=== PATIENT | male | born 1955 | race Two or more races ===

== ENCOUNTER 2024-04-15 13:42 | Inpatient (IN) | payer MEDICARE, OTHER ==
[~2024-04-15] VITALS: Ht 180.3 cm; Wt 127.0 kg
[2024-04-15 14:19] LABS: BASOPHILS % (AUTO) 0.2 % (0.0-2.0); EOSINOPHILS # (AUTO) 0.2 K/uL (0.0-0.7); EOSINOPHILS % (AUTO) 1.3 % (0.0-7.0); HEMOGLOBIN 15.5 g/dL (12.5-16.3); LYMPHOCYTES # (AUTO) 1.2 K/uL (0.8-4.8); MEAN CORPUSCULAR HEMOGLOBIN 28.9 uug (23.8-33.4); MEAN CORPUSCULAR HGB CONC 34 g/dL (32.5-36.3); MEAN CORPUSCULAR VOLUME 85.9 fL (73.0-96.2); MONOCYTES # (AUTO) 0.5 K/uL (0.1-1.30); MONOCYTES % (AUTO) 3.8 % (0.0-11.0); NEUTROPHILS # (AUTO) 12.5 K/uL (1.8-8.9); NEUTROPHILS % (AUTO) 86.7 % (38.5-71.5); PLATELET COUNT (AUTO) 188 K/uL (152-348); RED BLOOD CELL COUNT(AUTO) 5.36 MIL/uL (4.06-5.63); RED CELL DISTRIBUTION WIDTH 14.2 % (12.1-16.2); WHITE BLOOD COUNT (AUTO) 14.5 K/uL (3.6-10.2)
[2024-04-15 14:20] LABS: DIFFERENTIAL COMMENT 1
[2024-04-15 14:41] LABS: POTASSIUM 3.8 mmol/L (3.5-5.1)
[2024-04-15 14:42] LABS: CALCIUM 9.3 mg/dL (8.5-10.1); CREATININE 1.6 mg/dL (0.6-1.3)
[2024-04-15] MEDS ORDERED: ONDANSETRON 4 MG/2 ML VIAL ONE (14:45)
[2024-04-15] MEDS: IV NS 1000 ML 1,000 ML IV ONE (14:45)
[2024-04-15] MEDS ORDERED: HYDROMORPHONE 1 MG/1 ML DISP.SYRIN ONE (14:46)
[2024-04-15] MEDS: ONDANSETRON 4 MG/2 ML VIAL IV ONE (14:46)
[2024-04-15] MEDS: HYDROMORPHONE 1 MG/1 ML DISP.SYRIN IV ONE (14:48)
[2024-04-15] MEDS ORDERED: METF-442 PO (15:22)
[2024-04-15] MEDS ORDERED: FLUO40CA8 PO (15:22)
[2024-04-15] MEDS ORDERED: ARIP10TA9 PO (15:22)
[2024-04-15] MEDS ORDERED: TAMS-3 PO (15:22)
[2024-04-15] MEDS ORDERED: ATOR40TA PO (15:22)
[2024-04-15] MEDS ORDERED: HYDROCHLOROTHIAZIDE (15:22)
[2024-04-15] MEDS ORDERED: BENA40TA8 PO (15:22)
[2024-04-15 16:15] VITALS: O2SAT 96
[2024-04-15] MEDS ORDERED: BACITRACIN ZINC OINT 15 GM TUBE ONE (16:59)
[2024-04-15] MEDS: BACITRACIN ZINC OINT 15 GM TUBE TOP ONE (17:10)
[2024-04-15] MEDS ORDERED: DEXTROSE 50% 50 ML DISP.SYRIN IV PRN (19:45)
[2024-04-15] MEDS ORDERED: ACETAMINOPHEN 650 MG SUPP.RECT RC PRN (19:45)
[2024-04-15] MEDS ORDERED: ONDANSETRON 4 MG/2 ML VIAL IV PRN (19:45)
[2024-04-15 20:12] VITALS: BP 107/63; TEMP 98.6; O2SAT 97
[2024-04-15 20:27] VITALS: O2SAT 97
[2024-04-15] MEDS: IV D5/ 0.9% NACL 1,000 ML IV PRN (20:28)
[2024-04-15 20:54] LABS: *BILIRUBIN,URIN 1+ (NEGATIVE); *BLOOD, URINE NEGATIVE (NEGATIVE); *CLARITY,URINE CLEAR (CLEAR); *COLOR,URINE DARK YELLOW (YELLOW); *KETONES,URINE TRACE (NEGATIVE); *PROTEIN,URINE 1+ (NEGATIVE); *UROBILINOGEN,URINE 0.2 E.U./dl (NORMAL); NITRITE, URINE NEGATIVE (NEGATIVE); PH,URINE 5.5 (5.0-8.0); UGLUCOSE NEGATIVE (NEGATIVE)
[2024-04-15 20:55] LABS: LEUKOCYTE ESTERASE ,URINE 1+ (NEGATIVE)
[2024-04-15 20:58] LABS: BACTERIA,URINE FEW /HPF (NONE SEEN); RBC,URINE NONE SEEN /HPF (0-3)
[2024-04-15 20:59] LABS: SQUAMOUS EPITHELIAL CELL,UR MODERATE /HPF (NONE SEEN)
[2024-04-15] MEDS: HYDROMORPHONE 1 MG/1 ML DISP.SYRIN IV PRN (22:14)
[2024-04-15] MEDS: BLOOD SUGAR DIAGNOSTIC 1 EACH STRIP VI SCH (23:37)
[2024-04-15] MEDS: INSULIN REGULAR, HUMAN 300 UNIT/3 ML VIAL SQ PRN (23:37)
[2024-04-16] VITALS (9 sets, daily range): BP systolic 104–145; BP diastolic 65–91; TEMP 97.6–99.1; O2SAT 95–98
[2024-04-16 04:33] LABS: BASOPHILS % (AUTO) 0.2 % (0.0-2.0); EOSINOPHILS # (AUTO) 0.1 K/uL (0.0-0.7); EOSINOPHILS % (AUTO) 1.1 % (0.0-7.0); HEMATOCRIT 39.2 % (36.7-47.1); HEMOGLOBIN 13.3 g/dL (12.5-16.3); LYMPHOCYTES # (AUTO) 1.5 K/uL (0.8-4.8); MEAN CORPUSCULAR HGB CONC 34 g/dL (32.5-36.3); MEAN CORPUSCULAR VOLUME 85.7 fL (73.0-96.2); MONOCYTES # (AUTO) 0.5 K/uL (0.1-1.30); MONOCYTES % (AUTO) 5.9 % (0.0-11.0); NEUTROPHILS # (AUTO) 6.8 K/uL (1.8-8.9); NEUTROPHILS % (AUTO) 75.8 % (38.5-71.5); PLATELET COUNT (AUTO) 159 K/uL (152-348); RED BLOOD CELL COUNT(AUTO) 4.58 MIL/uL (4.06-5.63); WHITE BLOOD COUNT (AUTO) 8.9 K/uL (3.6-10.2)
[2024-04-16 04:49] LABS: DIFFERENTIAL COMMENT 1
[2024-04-16 05:11] LABS: ALANINE AMINOTRANSFERASE 39 U/L (16-63); ALBUMIN 3.2 g/dL (3.4-5.0); ALKALINE PHOSPHATASE 70 U/L (50-136); ASPARTATE AMINOTRANSFERASE 22 U/L (15-37); BILIRUBIN,TOTAL 0.8 mg/dL (0.2-1.0); CALCIUM 8.6 mg/dL (8.5-10.1); CARBON DIOXIDE 28 mmol/L (21-32); CHLORIDE 102 mmol/L (98-107); CREATININE 1.3 mg/dL (0.6-1.3); GLUCOSE 151 mg/dL (74-106); MAGNESIUM 1.4 mg/dL (1.8-2.4); PHOSPHOROUS 3.2 mg/dL (2.5-4.9); POTASSIUM 3.3 mmol/L (3.5-5.1); SODIUM SERUM 138 mmol/L (136-145); TOTAL PROTEIN, SERUM 6.3 g/dL (6.4-8.2); UREA NITROGEN, BLOOD 24 mg/dL (7-18)
[2024-04-16 05:16] LABS: IRON, SERUM 31 ug/dL (50-175)
[2024-04-16] MEDS: POTASSIUM CHLORIDE 50 ML IV SCH (06:40)
[2024-04-16] MEDS ORDERED: FENTANYL CITRATE 100 MCG/2 ML AMPUL ONE (08:07)
[2024-04-16] MEDS ORDERED: MIDAZOLAM HCL 2 MG/2 ML VIAL ONE (08:08)
[2024-04-16] MEDS ORDERED: VANCOMYCIN 1000 MG VIAL ONE (08:56)
[2024-04-16] MEDS ORDERED: ALBUTEROL SULFATE 2.5 MG/3 ML NEBU ONE (10:02)
[2024-04-16] MEDS ORDERED: hydrALAZINE HCL 20 MG/1 ML VIAL ONE (10:05)
[2024-04-16] MEDS ORDERED: POTASSIUM CHLORIDE 50 ML IV SCH (10:30)
[2024-04-16] MEDS ORDERED: HYDROCODONE/APAP 10-325 MG TABLET PO PRN (10:45)
[2024-04-16] MEDS ORDERED: HYDROMORPHONE 1 MG/1 ML DISP.SYRIN IV PRN (11:00)
[2024-04-16] MEDS: PANTOPRAZOLE SODIUM 40 MG VIAL IV SCH (11:21)
[2024-04-16] MEDS: MAGNESIUM SULFATE/D5W 100 ML IV SCH (11:21)
[2024-04-16] MEDS: POTASSIUM CHLORIDE 20 MEQ in IV D5 1/2 NS 1000 ML 1,000 ML IV PRN (11:22)
[2024-04-16 14:28] LABS: *BILIRUBIN,URIN NEGATIVE (NEGATIVE); *BLOOD, URINE NEGATIVE (NEGATIVE); *CLARITY,URINE CLEAR (CLEAR); *COLOR,URINE YELLOW (YELLOW); *KETONES,URINE TRACE (NEGATIVE); *PROTEIN,URINE TRACE (NEGATIVE); *UROBILINOGEN,URINE 0.2 E.U./dl (NORMAL); LEUKOCYTE ESTERASE ,URINE 1+ (NEGATIVE); NITRITE, URINE NEGATIVE (NEGATIVE); PH,URINE 5.5 (5.0-8.0); UGLUCOSE NEGATIVE (NEGATIVE)
[2024-04-16 14:36] LABS: BACTERIA,URINE FEW /HPF (NONE SEEN); RBC,URINE 0-3 /HPF (0-3); SQUAMOUS EPITHELIAL CELL,UR FEW /HPF (NONE SEEN); WBC,URINE 50-80 /HPF (0-3)
[2024-04-16 14:37] LABS: *CREATININE,URINE 141.5 mg/dL (30-125); *URINE TOTAL PROTEIN RANDOM 35.7 mg/dL (<150/24HR)
[2024-04-16] MEDS: BLOOD SUGAR DIAGNOSTIC 1 EACH STRIP VI SCH (15:56)
[2024-04-16] MEDS: CEFAZOLIN 1 G in IV DEXTROSE 5% 50 ML IV SCH (16:15)
[2024-04-16] MEDS ORDERED: FLUOXETINE HCL 20 MG CAPSULE PO SCH (16:30)
[2024-04-16] MEDS ORDERED: FLUO20CA42 PO (17:02)
[2024-04-16] MEDS: METFORMIN HCL 500 MG TABLET PO SCH (17:04)
[2024-04-16] MEDS: BENAZEPRIL HCL 20 MG TABLET PO SCH (17:04)
[2024-04-16] MEDS ORDERED: BUPR-96 PO (17:04)
[2024-04-16] MEDS ORDERED: CHLO50TA PO (17:04)
[2024-04-16] MEDS: ATORVASTATIN 40 MG TABLET PO SCH (20:26)
[2024-04-16] MEDS: TAMSULOSIN HCL 0.4 MG CAP.SR.24H PO SCH (20:26)
[2024-04-16] MEDS: MORPHINE SULFATE 4 MG/1 ML DISP.SYRIN IV PRN (20:30)
[2024-04-16] MEDS ORDERED: DEXTROSE 50% 50 ML DISP.SYRIN IV PRN (21:30)
[2024-04-17 04:35] VITALS: BP 108/68; TEMP 98.7; O2SAT 99
[2024-04-17] MEDS: BLOOD SUGAR DIAGNOSTIC 1 EACH STRIP VI SCH (06:33)
[2024-04-17 06:45] LABS: CALCIUM 8.4 mg/dL (8.5-10.1); CREATININE 1.3 mg/dL (0.6-1.3); MAGNESIUM 1.9 mg/dL (1.8-2.4); POTASSIUM 3.6 mmol/L (3.5-5.1)
[2024-04-17] MEDS: PANTOPRAZOLE SODIUM 40 MG TABLET.DR PO SCH (07:39)
[2024-04-17] MEDS: INSULIN REGULAR, HUMAN 300 UNIT/3 ML VIAL SQ PRN (07:39)
[2024-04-17] MEDS: buPROPion XL 150 MG TAB.SR.24H PO SCH (08:02)
[2024-04-17] MEDS: ARIPIPRAZOLE 10 MG TABLET PO SCH (08:02)
[2024-04-17] MEDS: FLUOXETINE HCL 20 MG CAPSULE PO SCH (08:02)
[2024-04-17] MEDS: CHLORTHALIDONE 25 MG TABLET PO SCH (08:03)
[2024-04-17] MEDS: ENOXAPARIN SODIUM 40 MG/0.4 ML DISP.SYRIN SQ SCH (08:16)
[2024-04-17] MEDS ORDERED: HYDROCHLOROTHIAZIDE 25 MG TABLET PO SCH (09:00)
[2024-04-17 12:00] VITALS: BP 100/70; TEMP 98.6; O2SAT 97
[2024-04-17 13:35] LABS: CREATINE KINASE, TOTAL 302 U/L (39-308)
[2024-04-17 16:00] VITALS: BP 146/77; TEMP 97.8; O2SAT 97
[2024-04-17 20:00] VITALS: BP 113/71; TEMP 98.8
[2024-04-18 03:21] VITALS: O2SAT 97
[2024-04-18 06:42] VITALS: BP 103/61; TEMP 99.5; O2SAT 96
[2024-04-18 12:00] VITALS: BP 108/71; TEMP 98.2; O2SAT 97
[2024-04-18 16:04] VITALS: BP 114/78; TEMP 97.6; O2SAT 97
[2024-04-18 20:35] VITALS: BP 100/73; TEMP 98; O2SAT 96
[2024-04-19] VITALS (7 sets, daily range): BP systolic 99–134; BP diastolic 72–76; TEMP 97.7–98; O2SAT 95–98
[2024-04-20 06:36] VITALS: BP 111/76; TEMP 98; O2SAT 93
[2024-04-20] MEDS ORDERED: GUAIFENESIN/CODEINE 5 ML LIQUID UDC PO PRN (10:15)
[2024-04-20] MEDS: GUAIFENESIN/DEXTROMETHORPHAN 5 ML UDC PO PRN (10:57)
[2024-04-20 11:43] VITALS: BP 104/75; TEMP 97.5; O2SAT 94
== END 2024-04-20 15:00 | DRG 492 ==
LOC: ER 13:43 → MEDSURG3 17:32
PROVIDERS: ADMIT Internal Medicine; ATTEND Nurse Practitioner Acute Care
PROC: 0QSH04Z Reposition Left Tibia with Internal Fixation Device, Open Approach (ICD-10-PCS; principal; 2024-04-16)
DX: S82.132A Displaced fracture of medial condyle of left tibia, initial encounter for closed fracture (principal); N17.0 Acute kidney failure with tubular necrosis; E44.1 Mild protein-calorie malnutrition; D68.59 Other primary thrombophilia; E66.01 Morbid (severe) obesity due to excess calories; Z68.39 Body mass index [BMI] 39.0-39.9, adult; E86.0 Dehydration; N40.0 Benign prostatic hyperplasia without lower urinary tract symptoms; W18.39XA Other fall on same level, initial encounter; Y93.A9 Activity, other involving cardiorespiratory exercise; Y92.830 Public park as the place of occurrence of the external cause; E87.6 Hypokalemia; E11.9 Type 2 diabetes mellitus without complications; E88.09 Other disorders of plasma-protein metabolism, not elsewhere classified; Z74.09 Other reduced mobility; Z79.84 Long term (current) use of oral hypoglycemic drugs; Z79.899 Other long term (current) drug therapy
CPT/HCPCS: 36415; 71045; 73070; 73590; 76770; 83550; 83735; 84100; 84300; 84484; 85025; 85610; 85730; 93005; A4606; A4649; A4663; C1713; G0378; J0360; J0690; J1170; J1650; J1815; J2250; J2270; J2405; J2470; J3010; J3370; J3475; J3480; J7040; J7042